=== PATIENT | male | born 1970 | race Hispanic/Latino ===

== ENCOUNTER 2018-11-16 12:37 | Emergency (ER) | payer OTHER ==
[2018-11-16 12:45] VITALS: BP 165/100; PULSE 90; RESP 18; TEMP 98.4; O2SAT 96
[2018-11-16] MEDS ORDERED: Fluorescein 1 mg Ophthalmic Strip ONE (13:29)
[2018-11-16] MEDS ORDERED: Tobramycin 0.3% OPHT SOLN OS STA (13:32)
--- NOTE | 2018-11-16 13:34 | C.PDOC ---
History Of Present Illness 48 y/o male presents to the ER complaining of foreign body sensation left eye. Patient states that he thinks he some dust or debri entered his eye when he was working. Patient reports that he cleaned his eye but he still had foreign body sensation. Denies having fever,chills, headache, dizziness, visual changes, and eye discharge. Time Seen by Provider: 11/16/18 12:54 Chief Complaint (Nursing): Eye Problem History Per: Patient History/Exam Limitations: no limitations Onset/Duration Of Symptoms: Hrs Current Symptoms Are (Timing): Still Present Severity: Moderate Past Medical History Reviewed: Historical Data, Nursing Documentation, Vital Signs Vital Signs: Last Vital Signs Temp 98.4 F 11/16/18 12:41 Pulse 90 11/16/18 12:41 Resp 18 11/16/18 12:41 BP 165/100 H 11/16/18 12:41 Pulse Ox 96 11/16/18 12:41 - Medical History PMH: HTN, Hyperlipidemia Other Surgeries: Hx of surgeries Family History: States: No Known Family Hx - Social History Hx Alcohol Use: Yes Hx Substance Use: No - Immunization History Hx Tetanus Toxoid Vaccination: Yes Hx Influenza Vaccination: Yes Hx Pneumococcal Vaccination: No Review Of Systems Except As Marked, All Systems Reviewed And Found Negative. Constitutional: Negative for: Fever, Chills Eyes: Positive for: Other (foreign body sensation in left eye). Negative for: Pain, Vision Change Physical Exam - Physical Exam Appears: Non-toxic, No Acute Distress Skin: Normal Color, Warm, Dry Head: Atraumatic, Normacephalic Eye(s): bilateral: PERRL, EOMI, right: Normal Inspection, left: Other (conjunctival erythema, foreign body visualized with fluorescein stain, mild uptake around 8 o clock position of eye) Nose: Normal Oral Mucosa: Moist Neck: Supple Chest: Symmetrical Neurological/Psych: Oriented x3, Normal Speech ED Course And Treatment O2 Sat by Pulse Oximetry: 96 (RA) Pulse Ox Interpretation: Normal Progress Note: Foreign body removed from eye with Q tip. Patient treated with Tobramycin drops.Patient has been discharged and instructed to follow up with PMD and supervisor phosphorus processing within 1-2 days. Disposition - Disposition Referrals: Jose Álvarez [Staff Provider] - Disposition: HOME/ ROUTINE Disposition Time: 13:34 Condition: STABLE Additional Instructions: Follow up with PMD and Telecommunications Engineer within 1-2 days. Return to ED if feel worse. Prescriptions: Tobramycin 0.3% [Tobrex 0.3% Ophth Soln] 1 drop OS Q2 #1 bottle Instructions: Foreign Body in Eye (DC) Forms: [facility] ([place]) - Clinical Impression Clinical Impression: Corneal foreign body - PA / CHEMICAL MANAGER / Resident Statement MD/DO has reviewed & agrees with the documentation as recorded. - Scribe Statement The provider has reviewed the documentation as recorded by the Gracieibe Brandon Enriquez Provider Attestation All medical record entries made by the Gracieibmarc were at my direction and personally dictated by me. I have reviewed the chart and agree that the record accurately reflects my personal performance of the history, physical exam, medical decision making, and the department course for this patient. I have also personally directed, reviewed, and agree with the discharge instructions and disposition.
== END 2018-11-16 14:00 | disposition home or self-care (01) ==
LOC: C.ER 12:37
DX: T15.02XA Foreign body in cornea, left eye, initial encounter (principal); X58.XXXA Exposure to other specified factors, initial encounter; E78.5 Hyperlipidemia, unspecified; I10 Essential (primary) hypertension